=== PATIENT | female | born 1980 | race African-American/Black ===

== ENCOUNTER 2020-07-02 08:21 | Emergency (ER) | payer MEDICAID ==
[~2020-07-02] VITALS: Ht 167.6 cm; Wt 85.0 kg
[2020-07-02] MEDS ORDERED: DEXAMETHASONE 4MG TABLET PO ONE (09:00)
[2020-07-02] MEDS ORDERED: ACETAMINOPHEN WITH CODEINE 300/30MG TABLET PO ONE (09:00)
[2020-07-02 09:15] VITALS: BP 123/69
== END 2020-07-02 09:16 | disposition home or self-care (01) ==
LOC: ER 08:21
DX: M54.5 Low back pain (principal); M54.31 Sciatica, right side
CPT/HCPCS: 99283; J8540